=== PATIENT | male | born 1965 | race Caucasian/White ===

== ENCOUNTER 2017-11-22 14:07 | Emergency (ER) | payer SELFPAY ==
[~2017-11-22] VITALS: Ht 182.9 cm; Wt 95.0 kg
[2017-11-22 14:11] VITALS: BP 142/82; PULSE 82; RESP 18; TEMP 97.4; O2SAT 98
[2017-11-22 15:25] LABS: BASOPHIL # 0.1 TH/MM3 (0-0.2); BASOPHIL % 1.3 % (0.0-2.0); EOSINOPHIL # 0.6 TH/MM3 (0-0.4); EOSINOPHIL % 7.1 % (0.0-4.0); HEMATOCRIT 43.3 % (39.0-51.0); HEMOGLOBIN 15.2 GM/DL (13.0-17.0); LYMPHOCYTE # 2.2 TH/MM3 (1.0-4.8); MEAN CELL VOLUME 86.4 FL (80.0-100.0); MEAN CORPUSCULAR HEMOGLOBIN 30.4 PG (27.0-34.0); MEAN CORPUSCULAR HGB CONC 35.2 % (32.0-36.0); MEAN PLATELET VOLUME 6.9 FL (7.0-11.0); MONO % 7.9 % (0.0-8.0); MONOCYTE # 0.7 TH/MM3 (0-0.9); NEUT % 57.7 % (16.0-70.0); PLATELET COUNT 298 TH/MM3 (150-450); RED BLOOD COUNT 5.01 MIL/MM3 (4.50-5.90); RED CELL DISTRIBUTION WIDTH 13.3 % (11.6-17.2); WHITE BLOOD COUNT 8.6 TH/MM3 (4.0-11.0)
[2017-11-22 15:32] LABS: INTERNATIONAL NORMALIZED RATIO 1.1 RATIO; PROTHROMBIN TIME - PATIENT 10.9 SEC (9.8-11.6)
[2017-11-22 15:40] LABS: BICARBONATE 29.2 MEQ/L (21.0-32.0); CALCIUM 9.2 MG/DL (8.5-10.1); CREATININE 0.82 MG/DL (0.60-1.30)
--- NOTE | 2017-11-22 15:56 | PD ---
HPI Chief Complaint: Edema Time Seen by Provider: 15:25 Travel History International Travel<30 days: No Contact w/Intl Traveler<30days: No Traveled to known affect area: No History of Present Illness HPI PATIENT IS A CVA PATIENT ABOUT 5 MONTHS AGO, WITH LEFT SIDED WEAKNESS SINCE. PATIENT USES A WHEELCHAIR WHICH APPARENTLY KEEPS ACCIDENTALLY BUMPING HIS ANKLES WITH IT. PATIENT IS HERE C/O WOUND TO HIS ANKLE AREA WELL SWELLING TO HIS LLE. PATIENT IS NOT ON STRONG BLOOD THINNERS... ALL:MARITZA RECENTLY MOVED FROM [place] AND HAS NO LOCAL PCP PMHX: DM, HTN, CVA WITH LEFT SIDED WEAKNESS, SUPPOSEDLY A CARDIAC CATH WITHOUT STENT AND TOLD THAT HE WAS "OK" NO PERCENTAGE ADVISED TO PATIENT. PFSH Past Medical History Atrial Fibrillation: Yes Cardiac Catheterization: Yes Cerebrovascular Accident: Yes (left deficit) Diabetes: Yes Patient Takes Glucophage: Yes Hypertension: Yes Tetanus Vaccination: Unknown Influenza Vaccination: Yes Social History Alcohol Use: No Tobacco Use: No Substance Use: Yes (marijuana) Allergies-Medications (Allergen,Severity, Reaction): Coded Allergies: No Known Allergies (Unverified , 11/22/17) Reported Meds & Prescriptions Reported Meds & Active Scripts Active Reported Carvedilol 3.125 Mg Tab 3.125 Mg PO BID Ramipril 2.5 Mg Cap 2.5 Mg PO DAILY Metformin (Metformin HCl) 500 Mg Tab 500 Mg PO BIDPC Atorvastatin (Atorvastatin Calcium) 80 Mg Tab 80 Mg PO HS Aspirin 81 (Aspirin) 81 Mg Tabdr 81 Mg PO DAILY Eliquis (Apixaban) 5 Mg Tab 5 Mg PO BID Amiodarone (Amiodarone HCl) 200 Mg Tab 200 Mg PO DAILY Reading (Hydrocodone-Acetaminophen) 10-325 Mg Tab 1 Tab PO Q4H PRN Colace (Docusate Sodium) 100 Mg Capsule 100 Mg PO BID Review of Systems General / Constitutional: No: Fever Eyes: No: Visual changes HENT: No: Headaches Cardiovascular: Positive: Edema Respiratory: No: Shortness of Breath Gastrointestinal: No: Abdominal Pain Genitourinary: No: Dysuria Musculoskeletal: Positive: Other Skin: Positive Lesions Neurologic: No: Weakness Psychiatric: No: Depression Endocrine: No: Polydipsia Hematologic/Lymphatic: No: Easy Bruising Physical Exam Narrative GENERAL: SKIN: Warm and dry. HEAD: Atraumatic. Normocephalic. EYES: Pupils equal and round. No scleral icterus. No injection or drainage. ENT: No nasal bleeding or discharge. Mucous membranes pink and moist. NECK: Trachea midline. No JVD. CARDIOVASCULAR: Regular rate and rhythm. RESPIRATORY: No accessory muscle use. Clear to auscultation. Breath sounds equal bilaterally. GASTROINTESTINAL: Abdomen soft, non-tender, nondistended. MUSCULOSKELETAL: Extremities without clubbing, cyanosis, or edema. No obvious deformities. NEUROLOGICAL: Awake and alert. No obvious cranial nerve deficits. Motor grossly within normal limits. Five out of 5 muscle strength in the arms and legs. Normal speech. PSYCHIATRIC: Appropriate mood and affect; insight and judgment normal. Data Data Last Documented VS Vital Signs Date Time Temp Pulse Resp B/P (MAP) Pulse Ox O2 Delivery O2 Flow Rate FiO2 11/22/17 14:11 97.4 82 18 142/82 (102) 98 Room Air Orders Orders Complete Blood Count With Diff (11/22/17 14:42) Basic Metabolic Panel (Bmp) (11/22/17 14:42) Prothrombin Time / Inr (Pt) (11/22/17 14:42) B-Type Natriuretic Peptide (11/22/17 14:43) Ankle, Limited (Ap&Lat) (11/22/17 ) Ankle, Limited (Ap&Lat) (11/22/17 ) Us Leg Venous Doppler (11/22/17 15:46) Clindamycin 600 Mg/Ns Premix (Cleocin 60 (11/22/17 16:15) Labs Laboratory Tests Test 11/22/17 14:45 White Blood Count 8.6 TH/MM3 Red Blood Count 5.01 MIL/MM3 Hemoglobin 15.2 GM/DL Hematocrit 43.3 % Mean Corpuscular Volume 86.4 FL Mean Corpuscular Hemoglobin 30.4 PG Mean Corpuscular Hemoglobin Concent 35.2 % Red Cell Distribution Width 13.3 % Platelet Count 298 TH/MM3 Mean Platelet Volume 6.9 FL Neutrophils (%) (Auto) 57.7 % Lymphocytes (%) (Auto) 26.0 % Monocytes (%) (Auto) 7.9 % Eosinophils (%) (Auto) 7.1 % Basophils (%) (Auto) 1.3 % Neutrophils # (Auto) 5.0 TH/MM3 Lymphocytes # (Auto) 2.2 TH/MM3 Monocytes # (Auto) 0.7 TH/MM3 Eosinophils # (Auto) 0.6 TH/MM3 Basophils # (Auto) 0.1 TH/MM3 CBC Comment DIFF FINAL Differential Comment Prothrombin Time 10.9 SEC Prothromb Time International Ratio 1.1 RATIO Blood Urea Nitrogen 16 MG/DL Creatinine 0.82 MG/DL Random Glucose 170 MG/DL Calcium Level 9.2 MG/DL Sodium Level 136 MEQ/L Potassium Level 4.2 MEQ/L Chloride Level 101 MEQ/L Carbon Dioxide Level 29.2 MEQ/L Anion Gap 6 MEQ/L Estimat Glomerular Filtration Rate 99 ML/MIN B-Type Natriuretic Peptide 26 PG/ML MDM Medical Decision Making Medical Screen Exam Complete: Yes Emergency Medical Condition: Yes Medical Record Reviewed: Yes Differential Diagnosis DVT V CELLULITIS V RENAL/LIVER FAILURE V CHF Narrative Course Per ultrasound findings no evidence of DVT. On blood work there was no evidence of any renal liver failure and BnP was within normal limits which is consistent as a negative screen for CHF Diagnosis Primary Impression: CELLULITIS Patient Instructions: Cellulitis (ED), General Instructions Scripts Sulfamethoxazole-Trimethoprim (Bactrim DS) 800-160 Mg Tab 1 TAB PO BID for Infection, #20 TAB 0 Refills Prov: Morales Dyer MD 11/22/17 Disposition: 01 DISCHARGE HOME Condition: Stable Morales Dyer MD Nov 22, 2017 15:56
[2017-11-22] MEDS ORDERED: CLINDAMYCIN INJ 600 MG in SODIUM CHLORIDE 0.9% INJ 100 ML IV ONE (16:00)
[2017-11-22] MEDS ORDERED: CLINDAMYCIN 600 MG/NS PREMIX 50 ML IV ONE (16:15)
--- NOTE | 2017-11-22 16:38 | RADRPT ---
EXAM DATE/TIME: 11/22/2017 15:54 [facility] COMPARISON: No previous studies available for comparison. INDICATIONS : Wound to right ankle. MEDICAL HISTORY : None. SURGICAL HISTORY : None. ENCOUNTER: Initial ACUITY: 1 day PAIN SCORE: 10/10 LOCATION: Right Ankle. FINDINGS: Two view examination was performed of the right ankle. The bony structures are in normal alignment. No evidence of fracture, dislocation, or soft tissue swelling. No radiopaque foreign bodies are see n. Bony mineralization is normal. There is a small spur of the inferior calcaneus at site of attachm ent of the plantar aponuerosis. CONCLUSION: 1. No underlying bony abnormality. 2. Mild spurring of the inferior calcaneus. Marlon Knutson MD on November 22, 2017 at 16:35 Board Certified Radiologist. This report was verified electronically.
--- NOTE | 2017-11-22 16:38 | RADRPT ---
EXAM DATE/TIME: 11/22/2017 15:57 [facility] COMPARISON: No previous studies available for comparison. INDICATIONS : Laceration to lateral malleolus. MEDICAL HISTORY : None. SURGICAL HISTORY : None. ENCOUNTER: Initial ACUITY: 1 day PAIN SCORE: 8/10 LOCATION: Left Ankle. FINDINGS: Two view exam was performed of the left ankle. The bony structures are in normal alignment. No evid ence of fracture, dislocation, or soft tissue swelling. No radiopaque foreign bodies are seen. Bony mineralization is normal. There is a small spur off the inferior calcaneus at the site of attachment of the plantar aponuerosis. CONCLUSION: 1. No underlying bony abnormality. 2. Small spur off the inferior calcaneus. Marlon Knutson MD on November 22, 2017 at 16:35 Board Certified Radiologist. This report was verified electronically.
--- NOTE | 2017-11-22 17:17 | RADRPT ---
EXAM DATE/TIME: 11/22/2017 16:51 [facility] COMPARISON: No previous studies available for comparison. INDICATIONS : Left leg swelling. MEDICAL HISTORY : Hypertension. Cerebrovascular accident. Afib. Diabetes. SURGICAL HISTORY : Right knee surgery. Cardiac catheterization. ENCOUNTER: Initial ACUITY: 1 week PAIN SCORE: 2/10 LOCATION: Left leg. TECHNIQUE: Venous ultrasound of the leg was performed from the inguinal ligament to the proximal calf. Real-karishma e, color Doppler and spectral tracing, compression and augmentation techniques were used. FINDINGS: There is normal compressibility of the deep venous system from the inguinal region to the proximal ca lf. No echogenic clot is seen in the lumen of the common femoral, femoral, popliteal, and posterior tibial veins. There is a normal response of the venous system to proximal and distal augmentation an d respiration. There are multiple mildly prominent lymph nodes in the groin which are nonspecific bu t appear reactive. CONCLUSION: 1. Evidence of deep venous thrombosis. 2. Multiple mildly prominent lymph nodes in the left groin which are nonspecific but appear reactive. Marlon Knutson MD on November 22, 2017 at 17:13 Board Certified Radiologist. This report was verified electronically.
[2017-11-22] MEDS ORDERED: ASPI1TAB57 PO (17:44)
[2017-11-22] MEDS ORDERED: METF500T PO (17:44)
[2017-11-22] MEDS ORDERED: CARV3.12 PO (17:44)
[2017-11-22] MEDS ORDERED: RAMI2.5C PO (17:44)
[2017-11-22] MEDS ORDERED: APIX5TAB PO (17:44)
[2017-11-22] MEDS ORDERED: ATOR80TA45 PO (17:44)
[2017-11-22] MEDS ORDERED: COLA100C5 PO (17:44)
[2017-11-22] MEDS ORDERED: AMIO200T PO (17:44)
[2017-11-22] MEDS ORDERED: HYDR-3366 PO (17:44)
[2017-11-22 18:17] VITALS: BP 152/78; PULSE 77; RESP 20; O2SAT 98
[2017-11-22] MEDS ORDERED: BACT800T5 PO (18:18)
== END 2017-11-22 18:58 | disposition home or self-care (01) ==
LOC: NEPC 14:07
DX: L03.90 Cellulitis, unspecified (principal); E11.9 Type 2 diabetes mellitus without complications; I10 Essential (primary) hypertension; I48.91 Unspecified atrial fibrillation; Z86.73 Personal history of transient ischemic attack (TIA), and cerebral infarction without residual deficits; Z79.01 Long term (current) use of anticoagulants; Z79.82 Long term (current) use of aspirin
CPT/HCPCS: 73600; 80048; 83880; 85025; 85610; 93971; 96365

== ENCOUNTER 2018-01-03 11:54 | Emergency (ER) | payer BC ==
[~2018-01-03] VITALS: Ht 175.3 cm; Wt 75.0 kg
[~2018-01-03 11:54] MED LIST: AMIO200T PO; APIX5TAB PO; ASPI1TAB57 PO; ATOR80TA45 PO; BACT800T5 PO; CARV3.12 PO; COLA100C5 PO; HYDR-3366 PO; METF500T PO; RAMI2.5C PO
[2018-01-03 12:27] VITALS: BP 145/75; PULSE 75; RESP 16; TEMP 98.5; O2SAT 98
[2018-01-03 12:29] LABS: AUTOMATED NEUTROPHIL # 6.3 TH/MM3 (1.8-7.7); BASOPHIL # 0.1 TH/MM3 (0-0.2); EOSINOPHIL # 0.4 TH/MM3 (0-0.4); EOSINOPHIL % 3.6 % (0.0-4.0); HEMATOCRIT 40.9 % (39.0-51.0); HEMOGLOBIN 14.4 GM/DL (13.0-17.0); LYMPH % 23.4 % (9.0-44.0); LYMPHOCYTE # 2.3 TH/MM3 (1.0-4.8); MEAN CELL VOLUME 86.4 FL (80.0-100.0); MEAN CORPUSCULAR HEMOGLOBIN 30.3 PG (27.0-34.0); MEAN CORPUSCULAR HGB CONC 35.1 % (32.0-36.0); MONO % 7.5 % (0.0-8.0); MONOCYTE # 0.7 TH/MM3 (0-0.9); NEUT % 64.5 % (16.0-70.0); PLATELET COUNT 265 TH/MM3 (150-450); RED BLOOD COUNT 4.73 MIL/MM3 (4.50-5.90); RED CELL DISTRIBUTION WIDTH 13.5 % (11.6-17.2); WHITE BLOOD COUNT 9.8 TH/MM3 (4.0-11.0)
[2018-01-03] MEDS ORDERED: SODIUM CHLORIDE 0.9% FLUSH 10 ML FLUSH IVF PRN (12:30)
[2018-01-03 12:44] LABS: ALT (GPT) 49 U/L (12-78)
[2018-01-03 12:46] LABS: ALKALINE PHOSPHATASE 92 U/L (45-117); TOTAL BILIRUBIN ADULT 0.6 MG/DL (0.2-1.0); TOTAL PROTEIN 7.3 GM/DL (6.4-8.2)
[2018-01-03 13:11] LABS: ALBUMIN 3.7 GM/DL (3.4-5.0); BICARBONATE 25.7 MEQ/L (21.0-32.0); BLOOD UREA NITROGEN 14 MG/DL (7-18); CALCIUM 9.3 MG/DL (8.5-10.1); CHLORIDE 104 MEQ/L (98-107); CREATININE 0.83 MG/DL (0.60-1.30); GLOMERULAR FILTRATION RATE 97 ML/MIN (>89); GLUCOSE,RANDOM 174 MG/DL (74-106); SODIUM (NA) 138 MEQ/L (136-145)
[2018-01-03] MEDS ORDERED: CYCLOBENZAPRINE HCL 10 MG TAB PO ONE (13:15)
--- NOTE | 2018-01-03 13:17 | PD ---
HPI Chief Complaint: Seizure Time Seen by Provider: 12:53 Travel History International Travel<30 days: No Contact w/Intl Traveler<30days: No Traveled to known affect area: No History of Present Illness HPI Patient is a 52-year-old male presenting to the emergency department for evaluation of seizure-like activity. Patient states that he had a stroke in June, since that time he has had muscle spasms on his left side. He has an all night and in the morning. This morning he reports increased muscle spasms so much so that the whole bed was shaking. His girlfriend thought that he was having a seizure and called 911. Patient states that he was aware of what was going on during the entire episode, there was no bladder or bowel incontinence. Patient has no previous history of seizures. He states the spasms lasted for 2-3 minutes. He had been on Flexeril which helped the muscle spasms but his new primary doctor did not prescribe it for him. Symptom onset was sudden, symptom severity is mild to moderate, there were no alleviating factors. Past medical history is significant for CVA, type 2 diabetes, hypertension, A. fib, patient is currently on Eliquis. PFSH Past Medical History Hx Anticoagulant Therapy: Yes (ELIQUIS) Atrial Fibrillation: Yes Cardiac Catheterization: Yes Cerebrovascular Accident: Yes (left deficit) Diabetes: Yes Hypertension: Yes Musculoskeletal: Yes (Muscle spasms) Social History Alcohol Use: No Tobacco Use: No Substance Use: Yes (marijuana) Allergies-Medications (Allergen,Severity, Reaction): Coded Allergies: No Known Allergies (Unverified , 11/22/17) Reported Meds & Prescriptions Reported Meds & Active Scripts Active Bactrim DS (Sulfamethoxazole-Trimethoprim) 800-160 Mg Tab 1 Tab PO BID Reported Carvedilol 3.125 Mg Tab 3.125 Mg PO BID Ramipril 2.5 Mg Cap 2.5 Mg PO DAILY Metformin (Metformin HCl) 500 Mg Tab 500 Mg PO BIDPC Atorvastatin (Atorvastatin Calcium) 80 Mg Tab 80 Mg PO HS Aspirin 81 (Aspirin) 81 Mg Tabdr 81 Mg PO DAILY Eliquis (Apixaban) 5 Mg Tab 5 Mg PO BID Amiodarone (Amiodarone HCl) 200 Mg Tab 200 Mg PO DAILY Reeder (Hydrocodone-Acetaminophen) 10-325 Mg Tab 1 Tab PO Q4H PRN Colace (Docusate Sodium) 100 Mg Capsule 100 Mg PO BID Review of Systems Except as stated in HPI: all other systems reviewed are Neg Eyes: No: Blurred Vision HENT: No: Headaches Cardiovascular: No: Chest Pain or Discomfort Respiratory: No: Shortness of Breath Gastrointestinal: No: Nausea, Abdominal Pain Musculoskeletal: Positive: Myalgias, Cramping Neurologic: Positive: Focal Abnormalities, No: Dizziness, Syncope, Change in Mentation, Slurred Speech Physical Exam Narrative GENERAL: Well-developed, well-nourished, alert male. Presenting in no acute distress. SKIN: Warm and dry. HEAD: Atraumatic. Normocephalic. EYES: Pupils equal and round. No scleral icterus. No injection or drainage. ENT: No nasal bleeding or discharge. Mucous membranes pink and moist. NECK: Trachea midline. No JVD. CARDIOVASCULAR: Regular rate and rhythm. RESPIRATORY: No accessory muscle use. Clear to auscultation. Breath sounds equal bilaterally. GASTROINTESTINAL: Abdomen soft, non-tender, nondistended. Hepatic and splenic margins not palpable. MUSCULOSKELETAL: Extremities without clubbing, cyanosis, or edema. No obvious deformities. NEUROLOGICAL: Awake and alert. No obvious cranial nerve deficits. Motor grossly within normal limits. Five out of 5 muscle strength in the right arms and legs. 2 out of 5 in the left upper and lower. Normal speech. PSYCHIATRIC: Appropriate mood and affect; insight and judgment normal. Data Data Last Documented VS Vital Signs Date Time Temp Pulse Resp B/P (MAP) Pulse Ox O2 Delivery O2 Flow Rate FiO2 01/03/18 12:27 98.5 75 16 145/75 (98) 98 Orders Orders Complete Blood Count With Diff (01/03/18 12:08) Comprehensive Metabolic Panel (01/03/18 12:08) Electrocardiogram (01/03/18 ) Blood Glucose (01/03/18 12:19) Ecg Monitoring (01/03/18 12:19) Iv Access Insert/Monitor (01/03/18 12:19) Oximetry (01/03/18 12:19) Sodium Chloride 0.9% Flush (Ns Flush) (01/03/18 12:30) Ckmb (Isoenzyme) Profile (01/03/18 12:19) Troponin I (01/03/18 12:19) Drug Screen, Random Urine (01/03/18 12:19) Ct Brain W/O Iv Contrast(Rout) (01/03/18 ) Cyclobenzaprine (Flexeril) (01/03/18 13:15) Labs Laboratory Tests Test 01/03/18 12:05 01/03/18 12:19 White Blood Count 9.8 TH/MM3 Red Blood Count 4.73 MIL/MM3 Hemoglobin 14.4 GM/DL Hematocrit 40.9 % Mean Corpuscular Volume 86.4 FL Mean Corpuscular Hemoglobin 30.3 PG Mean Corpuscular Hemoglobin Concent 35.1 % Red Cell Distribution Width 13.5 % Platelet Count 265 TH/MM3 Mean Platelet Volume 7.0 FL Neutrophils (%) (Auto) 64.5 % Lymphocytes (%) (Auto) 23.4 % Monocytes (%) (Auto) 7.5 % Eosinophils (%) (Auto) 3.6 % Basophils (%) (Auto) 1.0 % Neutrophils # (Auto) 6.3 TH/MM3 Lymphocytes # (Auto) 2.3 TH/MM3 Monocytes # (Auto) 0.7 TH/MM3 Eosinophils # (Auto) 0.4 TH/MM3 Basophils # (Auto) 0.1 TH/MM3 CBC Comment DIFF FINAL Differential Comment Blood Urea Nitrogen 14 MG/DL Creatinine 0.83 MG/DL Random Glucose 174 MG/DL Total Protein 7.3 GM/DL Albumin 3.7 GM/DL Calcium Level 9.3 MG/DL Alkaline Phosphatase 92 U/L Aspartate Amino Transf (AST/SGOT) 42 U/L Alanine Aminotransferase (ALT/SGPT) 49 U/L Total Bilirubin 0.6 MG/DL Sodium Level 138 MEQ/L Potassium Level 4.2 MEQ/L Chloride Level 104 MEQ/L Carbon Dioxide Level 25.7 MEQ/L Anion Gap 8 MEQ/L Estimat Glomerular Filtration Rate 97 ML/MIN Total Creatine Kinase 87 U/L Troponin I LESS THAN 0.02 NG/ML Urine Opiates Screen NEG Urine Barbiturates Screen NEG Urine Amphetamines Screen NEG Urine Benzodiazepines Screen NEG Urine Cocaine Screen NEG Urine Cannabinoids Screen NEG MDM Medical Decision Making Medical Screen Exam Complete: Yes Emergency Medical Condition: Yes Medical Record Reviewed: Yes Interpretation(s) Vital Signs Date Time Temp Pulse Resp B/P (MAP) Pulse Ox O2 Delivery O2 Flow Rate FiO2 01/03/18 12:27 98.5 75 16 145/75 (98) 98 Differential Diagnosis Seizure versus metabolic abnormality versus muscle spasm versus less likely CVA versus TIA versus other Narrative Course Patient is well-appearing 52-year-old male presenting for evaluation of seizure- like activity this morning. Patient's vital signs are stable, he is well- appearing, he denies any history of seizures. The patient reports was severe muscle spasming. Labs and imaging ordered and pending. CBC with no acute findings Chemistry with no acute findings CK is normal Troponin is negative Urine drug screen is negative CT scan of the brain shows remote right MCA distribution infarct. No acute findings. Observed activity this morning could be related to severe muscle spasms or seizure-like activity. Patient has no acute findings today, he has no history of seizure disorder. Discussed findings with my attending physician. Patient will be discharged home with close follow-up with his primary doctor for possible EEG and/or referral to neurology. Patient verbalized understanding of instructions. Patient was advised to return to emergency department immediately for any new or worsening symptoms. Patient stable for discharge. Diagnosis Primary Impression: Muscle spasm Additional Impression: Observed seizure-like activity Referrals: Primary Care Physician 3 days Call for an appointment Patient Instructions: General Instructions, Muscle Spasm (ED), New-Onset Seizure in Adults (ED) Additional Instructions: Follow-up with your primary doctor for further evaluation of seizure-like activity Return to emergency department immediately for any new or worsening symptoms Continue home medications previously prescribed Take Flexeril as needed and as directed for muscle spasms Med/Other Pt SpecificInfo: Prescription(s) given Scripts Cyclobenzaprine (Flexeril) 10 Mg Tab 10 MG PO TID Y for MUSCLE SPASM, #30 TAB 0 Refills Prov: Rosamaria Ogden 01/03/18 Disposition: 01 DISCHARGE HOME Condition: Stable Rosamaria Ogden Jan 03, 2018 13:17
--- NOTE | 2018-01-03 13:19 | RADRPT ---
EXAM DATE/TIME: 01/03/2018 12:54 [facility] COMPARISON: No previous studies available for comparison. INDICATIONS : Previous stroke 6 months ago, today woke up with tremors, and left sided weakness. RADIATION DOSE: 38.75 CTDIvol (mGy) MEDICAL HISTORY : Cerebrovascular disease. Cardiovascular disease Hypertension.AFIB, diabetes SURGICAL HISTORY : Right knee arthroscopy ENCOUNTER: Initial ACUITY: 1 day PAIN SCALE: 0/10 LOCATION: cranial TECHNIQUE: Multiple contiguous axial images were obtained of the head. Using automated exposure control and adj ustment of the mA and/or kV according to patient size, radiation dose was kept as low as reasonably a chievable to obtain optimal diagnostic quality images. DICOM format image data is available electro nically for review and comparison. FINDINGS: There is a remote infarct in the right MCA distribution. No acute hemorrhage, mass effect or shift. N o hydrocephalus. No acute bony abnormalities. CONCLUSION: 1. Remote right MCA distribution infarct. No acute findings. Guillermo Boudreaux MD on January 03, 2018 at 13:15 Board Certified Radiologist. This report was verified electronically.
[2018-01-03 13:22] LABS: AST (GOT) 42 U/L (15-37)
[2018-01-03 13:28] LABS: TROPONIN I LESS THAN 0.02 NG/ML (0.02-0.05)
[2018-01-03] MEDS ORDERED: CYCL10TA PO (13:57)
--- NOTE | 2018-01-04 16:31 | EKG ---
Date Performed: 01/03/2018 Time Performed: 12:40:57 PTAGE: 52 years EKG: Inferior Q-wave lead III only, of undetermined significance Nonspecific T-wave change WANG ROMERO ECG NO PREVIOUS TRACING DOCTOR: Michael Alexandra Interpretating Date/Time 01/04/2018 16:29:30
== END 2018-01-03 14:36 | disposition home or self-care (01) ==
LOC: NEDAMB 11:54
DX: M62.838 Other muscle spasm (principal); R56.9 Unspecified convulsions; F12.90 Cannabis use, unspecified, uncomplicated; E11.9 Type 2 diabetes mellitus without complications; I48.91 Unspecified atrial fibrillation; Z79.01 Long term (current) use of anticoagulants; Z79.84 Long term (current) use of oral hypoglycemic drugs
CPT/HCPCS: 70450; 80053; 80307; 82550; 84484; 85025; 93005; 99285